=== PATIENT | male | born 1980 | race Caucasian/White ===

== ENCOUNTER 2017-10-12 09:02 | Inpatient (IN) | payer OTHER, MEDICARE ==
[~2017-10-12] VITALS: Ht 177.8 cm; Wt 70.6 kg
[2017-10-12 09:10] VITALS: BP 141/60; PULSE 61; RESP 17; TEMP 98.7; O2SAT 99
--- NOTE | 2017-10-12 09:29 | PD ---
HPI Chief Complaint: Psychiatric Symptoms Time Seen by Provider: 09:14 Travel History International Travel<30 days: No Contact w/Intl Traveler<30days: No Traveled to known affect area: No History of Present Illness HPI 29-year-old male presents to the emergency department voluntarily for psychiatric evaluation. Patient reports history of schizoaffective disorder. He states that he is on a Shah and Ambien. He states that he left [place] on Tuesday and has been walking. He states he was at [facility], which she states is a mental institution for 11 months back in 2014. Patient states that he has 2 names, one being a fictitious name that he likes to be called. He reports chronic hallucinations. He reports depression, but no plan to hurt himself. No suicidal or homicidal ideation. He reports pain to the groin from walking. He states he was previously prescribed a cream for this. Patient denies any other symptoms or complaints. Moderate severity. PFSH Past Medical History Schizophrenia: Yes (SCHIZOAFFECTIVE ) Past Surgical History Other Surgery: Yes (MELANOMA REMOVED FROM RIGHT SHOULDER) Social History Alcohol Use: Yes Tobacco Use: Yes Substance Use: Yes (MARIJUANA) Allergies-Medications (Allergen,Severity, Reaction): Coded Allergies: No Known Allergies (Verified Allergy, Unknown, 10/12/17) Review of Systems Except as stated in HPI: all other systems reviewed are Neg Physical Exam Narrative GENERAL: Well-nourished, well-developed male patient, ambulatory. Afebrile. Patient is alert oriented to person, place, time. SKIN: Focused skin assessment warm/dry. Patient has erythematous rash to the groin consistent with candidiasis. HEAD: Normocephalic. Atraumatic. EYES: No scleral icterus. No injection or drainage. NECK: Supple, trachea midline. No JVD or lymphadenopathy. CARDIOVASCULAR: Regular rate and rhythm without murmurs, gallops, or rubs. RESPIRATORY: Breath sounds equal bilaterally. No accessory muscle use. Lung sounds are clear to auscultation peer GASTROINTESTINAL: Abdomen soft, non-tender, nondistended. MUSCULOSKELETAL: No cyanosis, or edema. PSYCHIATRIC: Patient reports having a fictitious name and reports hallucinations. Data Data Last Documented VS Vital Signs Date Time Temp Pulse Resp B/P (MAP) Pulse Ox O2 Delivery O2 Flow Rate FiO2 10/12/17 09:10 98.7 61 17 141/60 (87) 99 Orders Orders Complete Blood Count With Diff (10/12/17 09:23) Comprehensive Metabolic Panel (10/12/17 09:23) Thyroid Stimulating Hormone (10/12/17 09:23) Psych Screen (10/12/17 09:23) Drug Screen, Random Urine (10/12/17 09:23) Alcohol (Ethanol) (10/12/17 09:23) Labs Laboratory Tests Test 10/12/17 09:40 White Blood Count 12.3 TH/MM3 Red Blood Count 4.54 MIL/MM3 Hemoglobin 14.0 GM/DL Hematocrit 40.4 % Mean Corpuscular Volume 89.0 FL Mean Corpuscular Hemoglobin 30.9 PG Mean Corpuscular Hemoglobin Concent 34.7 % Red Cell Distribution Width 13.2 % Platelet Count 226 TH/MM3 Mean Platelet Volume 7.8 FL Neutrophils (%) (Auto) 87.1 % Lymphocytes (%) (Auto) 7.5 % Monocytes (%) (Auto) 5.0 % Eosinophils (%) (Auto) 0.2 % Basophils (%) (Auto) 0.2 % Neutrophils # (Auto) 10.7 TH/MM3 Lymphocytes # (Auto) 0.9 TH/MM3 Monocytes # (Auto) 0.6 TH/MM3 Eosinophils # (Auto) 0.0 TH/MM3 Basophils # (Auto) 0.0 TH/MM3 CBC Comment DIFF FINAL Differential Comment Blood Urea Nitrogen 35 MG/DL Creatinine 0.90 MG/DL Random Glucose 76 MG/DL Total Protein 7.5 GM/DL Albumin 4.2 GM/DL Calcium Level 9.1 MG/DL Alkaline Phosphatase 65 U/L Aspartate Amino Transf (AST/SGOT) 69 U/L Alanine Aminotransferase (ALT/SGPT) 33 U/L Total Bilirubin 1.2 MG/DL Sodium Level 137 MEQ/L Potassium Level 3.7 MEQ/L Chloride Level 102 MEQ/L Carbon Dioxide Level 21.1 MEQ/L Anion Gap 14 MEQ/L Estimat Glomerular Filtration Rate 94 ML/MIN Thyroid Stimulating Hormone 3rd Gen 1.290 uIU/ML Urine Opiates Screen NEG Urine Barbiturates Screen NEG Urine Amphetamines Screen NEG Urine Benzodiazepines Screen NEG Urine Cocaine Screen NEG Urine Cannabinoids Screen POS Ethyl Alcohol Level LESS THAN 3 MG/DL MDM Medical Decision Making Medical Screen Exam Complete: Yes Emergency Medical Condition: Yes Medical Record Reviewed: Yes Differential Diagnosis Schizoaffective disorder versus bipolar versus depression versus anxiety versus electrode abnormality Narrative Course 37-year-old male presents to the emergency department voluntarily for psychiatric evaluation. Reports history of schizoaffective disorder. CBC, CMP , TSH, urine drug screen, alcohol level are ordered and pending. CBC shows leukocytosis 12.3. CMP shows no acute abnormality. TSH is 1.290. Alcohol level is less than 3. UDS is positive for cannabinoids. Patient is medically cleared for psychiatric screening and disposition. Mental health screening discussed with the patient. Psychiatric screen ordered. Diagnosis Primary Impression: Medical clearance for psychiatric admission Condition: Stable Michelle Lewis October 12, 2017 09:29
[2017-10-12 09:53] LABS: AUTOMATED NEUTROPHIL # 10.7 TH/MM3 (1.8-7.7); BASOPHIL % 0.2 % (0.0-2.0); EOSINOPHIL % 0.2 % (0.0-4.0); HEMATOCRIT 40.4 % (39.0-51.0); LYMPH % 7.5 % (9.0-44.0); LYMPHOCYTE # 0.9 TH/MM3 (1.0-4.8); MEAN CORPUSCULAR HEMOGLOBIN 30.9 PG (27.0-34.0); MEAN CORPUSCULAR HGB CONC 34.7 % (32.0-36.0); MEAN PLATELET VOLUME 7.8 FL (7.0-11.0); MONOCYTE # 0.6 TH/MM3 (0-0.9); NEUT % 87.1 % (16.0-70.0); PLATELET COUNT 226 TH/MM3 (150-450); RED BLOOD COUNT 4.54 MIL/MM3 (4.50-5.90); RED CELL DISTRIBUTION WIDTH 13.2 % (11.6-17.2); WHITE BLOOD COUNT 12.3 TH/MM3 (4.0-11.0)
[2017-10-12 10:20] LABS: ALBUMIN 4.2 GM/DL (3.4-5.0); AST (GOT) 69 U/L (15-37); BICARBONATE 21.1 MEQ/L (21.0-32.0); BLOOD UREA NITROGEN 35 MG/DL (7-18); CALCIUM 9.1 MG/DL (8.5-10.1); CHLORIDE 102 MEQ/L (98-107); GLOMERULAR FILTRATION RATE 94 ML/MIN (>89); GLUCOSE,RANDOM 76 MG/DL (74-106); SODIUM (NA) 137 MEQ/L (136-145)
[2017-10-12 10:21] LABS: ALT (GPT) 33 U/L (12-78)
[2017-10-12 10:30] LABS: ALKALINE PHOSPHATASE 65 U/L (45-117); TOTAL BILIRUBIN ADULT 1.2 MG/DL (0.2-1.0); TOTAL PROTEIN 7.5 GM/DL (6.4-8.2)
[2017-10-12] MEDS ORDERED: ALUMINUM/MAGNESIUM/SIMETH 30 ML CUP PO PRN (13:15)
[2017-10-12] MEDS ORDERED: MAGNESIUM HYDROXIDE SUSP 30 ML CUP PO PRN (13:15)
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
[2017-10-12 15:48] VITALS: BP 121/65; PULSE 55; RESP 18; TEMP 98.5; O2SAT 97
[2017-10-13 08:46] LABS: BICARBONATE 27.8 MEQ/L (21.0-32.0); BLOOD UREA NITROGEN 16 MG/DL (7-18); CALCIUM 8.7 MG/DL (8.5-10.1); CHLORIDE 105 MEQ/L (98-107); CHOLESTEROL 130 MG/DL (120-200); CREATININE 0.67 MG/DL (0.60-1.30); GLOMERULAR FILTRATION RATE 133 ML/MIN (>89); GLUCOSE,RANDOM 102 MG/DL (74-106); SODIUM (NA) 141 MEQ/L (136-145)
[2017-10-13] MEDS: NICOTINE 21 MG/24 HR PATCH T-DERMAL SCH (08:49)
[2017-10-13] MEDS: REMOVE OLD PATCH T-DERMAL SCH (08:51)
[2017-10-13 09:01] LABS: HDL CHOLESTEROL 44.7 MG/DL (40.0-60.0); LDL CHOLESTEROL 68 MG/DL (0-99); TRIGLYCERIDES 86 MG/DL (42-150)
[2017-10-13] MEDS: PALIPERIDONE ER 6 MG TAB PO SCH (15:45)
[2017-10-13 16:29] LABS: HEMOGLOBIN A1C 4.7 % (4.3-6.0)
--- NOTE | 2017-10-13 17:29 | PD.CONS ---
HPI Service [facility] Consult Requested By groin pain Reason for Consult Psychiatry Primary Care Physician No Primary Care Physician Diagnoses: History of Present Illness This is a 29-year-old male admitted at the psych unit for schizoaffective disorder. We were consulted for groin rash. Patient is a poor historian, not cooperative. Per patient, he walked from [place] on Tuesday and since then now has bilateral groin rash both posteriorly and anteriorly. It is painful and red. Review of Systems ROS Limitations: Uncooperative, Poor Historian Past Family Social History Allergies: Coded Allergies: No Known Allergies (Verified Allergy, Unknown, 10/12/17) Past Medical History Schizoaffective disorder Past Surgical History Melanoma removal Reported Medications None Family History Cannot be obtained, patient not cooperative. Social History Marijuana use Physical Exam Physical Exam Not in distress Ambulating Physical exam not completely done, patient not cooperative and cursing. Rash bilateral inguinal area and gluteal cleft, not leathery, erythematous, tender, swollen. Laboratory Laboratory Tests Test 10/13/17 07:34 Blood Urea Nitrogen 16 Creatinine 0.67 Random Glucose 102 Calcium Level 8.7 Sodium Level 141 Potassium Level 3.4 Chloride Level 105 Carbon Dioxide Level 27.8 Anion Gap 8 Estimat Glomerular Filtration Rate 133 Total Creatine Kinase 379 Creatine Kinase MB 2.2 Creatine Kinase MB % 0.6 Triglycerides Level 86 Cholesterol Level 130 LDL Cholesterol 68 HDL Cholesterol 44.7 Cholesterol/HDL Ratio 2.90 Result Diagram: 10/12/17 0940 10/13/17 0734 Assessment and Plan Assessment and Plan This is a 37-year-old male with friction rash admitted in the psych unit for schizoaffective disorder Schizoaffective disorder-management per psychiatry Friction rash, rule out beginning cellulitis-patient with mild leukocytosis, possibly with beginning cellulitis. Start mupirocin ointment and zinc oxide on groin rash. Start Keflex, monitor the next few days for resolution. Hypokalemia-replace DVT prophylaxis: Low risk, and bleeding. Paul Dumont MD October 13, 2017 17:29
[2017-10-13] MEDS: POTASSIUM CHLORIDE 20 MEQ PWD PACKET PO ONE ×2 (18:31→19:38)
[2017-10-13] MEDS: ACETAMINOPHEN 325 MG TAB PO PRN (19:43)
[2017-10-13] MEDS: MUPIROCIN 2% CREAM 15 GM TOPICAL SCH (20:09)
[2017-10-13] MEDS: hydrOXYzine HCL 50 MG TAB PO PRN (20:10)
[2017-10-13] MEDS: ZOLPIDEM TARTRATE 5 MG TAB PO PRN (20:10)
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
[2017-10-13] MEDS: CEPHALEXIN MONOHYDRATE 500 MG CAP PO SCH (21:06)
[2017-10-14] MEDS: CEPHALEXIN MONOHYDRATE 500 MG CAP PO SCH ×2 (06:02→14:00)
[2017-10-14 06:17] VITALS: BP 98/57; PULSE 53; RESP 16; TEMP 97.7; O2SAT 98
[2017-10-14] MEDS: REMOVE OLD PATCH T-DERMAL SCH (09:00)
[2017-10-14] MEDS: NICOTINE 21 MG/24 HR PATCH T-DERMAL SCH (09:00)
[2017-10-14] MEDS: MUPIROCIN 2% CREAM 15 GM TOPICAL SCH ×2 (09:10→20:56)
[2017-10-14] MEDS: PALIPERIDONE ER 6 MG TAB PO SCH (09:10)
[2017-10-14] MEDS: ZINC OXIDE 20% OINT 30 GM TUBE TOPICAL SCH (09:10)
--- NOTE | 2017-10-14 15:24 | HHI.PR ---
Subjective Remarks Follow-up rash. Patient states that he feels terrible. Does not feel that his legs are any better. Still painful. Objective Vitals Vital Signs Date Time Temp Pulse Resp B/P (MAP) Pulse Ox O2 Delivery O2 Flow Rate FiO2 10/14/17 06:17 97.7 53 16 98/57 (71) 98 Result Diagram: 10/12/17 0940 10/13/17 0734 Objective Remarks General: No acute distress. Skin: Abrasions with scabs and no drainage on posterior/medial thighs bilaterally, left>right. Rash in gluteal cleft with mild erythema. Psych: Alert, answers questions appropriately. Neuro: Normal speech. No focal deficits noted. Procedures None Urinary Catheter: No Vascular Central Line Catheter: No A/P Assessment and Plan 1. Schizoaffective disorder: Management per psychiatry. 2. Rash, bilateral legs: Continue conservative management. Continue mupirocin ointment and zinc oxide. Discontinue Keflex. 3. Hypokalemia: Received supplementation. 4. DVT prophylaxis: Low risk. Ambulation. Carlo Suresh MD Oct 14, 2017 15:24
--- NOTE | 2017-10-14 18:25 | HHI.PYPN ---
Subjective Remarks Patient seen for follow-up, chart reviewed. Reported the patient noted to be anxious, attending groups, compliant with medications but denying any suicidal ideations. Patient was found lying hospital bed noted B irritable, superficial cooperative, sarcastic at times, and disorganized throughout interview at times. Patient states that he sleeping "better" his mood has been okay, eating and drinking well, Perseverated on his medications continue to endorse auditory hallucinations. Patient states that he does not plan on staying in [place] stating that he will continue to walk to the next [facility] and so forth. Patient then later states that he wants to move back to the report was unable to provide any contact information for who he would be looking to stay with what in [place]. Patient continues with disorganized plans. Review of Systems Except as stated in HPI: all other systems reviewed are Neg Mental Status Examination Appearance: Disheveled Consciousness: Vigilant Orientation: x4 Motor Activity: Other (Not observed) Speech: Pressured, Rapid Language: Adequate Fund of Knowledge: Inadequate Attention and Concentration: Easily Distracted Memory: Unremarkable Mood: Irritable Affect: Irritable Thought Process & Associations: Circumstantial, Disorganized Thought Content: Bizarre thinking, Obsessions Hallucination Type: Auditory Delusion Type: Paranoid Suicidal Ideation: No Suicidal Plan: No Suicidal Intention: No Homicidal Ideation: No Homicidal Plan: No Homicidal Intention: No Insight: Poor Judgment: Poor Results Vitals/IOs Vital Signs Date Time Temp Pulse Resp B/P (MAP) Pulse Ox O2 Delivery O2 Flow Rate FiO2 10/14/17 06:17 97.7 53 16 98/57 (71) 98 Assessment & Plan Problem List: (1) Schizoaffective disorder, chronic condition with acute exacerbation ICD Codes: F25.8 - Other schizoaffective disorders Status: Acute Assessment & Plan Patient this time continues with some irritability, continues with some disorganization and continues endorse auditory hallucinations. We will increase Invega to 9 mg p.o. daily for psychosis, continue rest of medications. Continue monitor mood and behavior. Discharge planning in progress. Justification for Cont. Inpt. At risk of further decompensation at lower level of care. Discharge Planning To be determined. Jaret Summers MD Oct 14, 2017 18:25
[2017-10-14 19:00] VITALS: BP 116/56; PULSE 52; RESP 17; TEMP 97.9; O2SAT 98
[2017-10-14] MEDS: ACETAMINOPHEN 325 MG TAB PO PRN (22:06)
[2017-10-15 06:13] VITALS: BP 133/54; PULSE 51; RESP 17; TEMP 97.7; O2SAT 98
[2017-10-15] MEDS: ACETAMINOPHEN 325 MG TAB PO PRN ×3 (08:00→21:58)
[2017-10-15] MEDS: MUPIROCIN 2% CREAM 15 GM TOPICAL SCH ×2 (08:00→21:00)
[2017-10-15] MEDS: ZINC OXIDE 20% OINT 30 GM TUBE TOPICAL SCH (08:00)
[2017-10-15 08:17] LABS: AUTOMATED NEUTROPHIL # 3.4 TH/MM3 (1.8-7.7); BASOPHIL # 0.1 TH/MM3 (0-0.2); EOSINOPHIL # 0.3 TH/MM3 (0-0.4); EOSINOPHIL % 4.7 % (0.0-4.0); HEMATOCRIT 42.5 % (39.0-51.0); HEMOGLOBIN 14.5 GM/DL (13.0-17.0); LYMPH % 27.8 % (9.0-44.0); LYMPHOCYTE # 1.6 TH/MM3 (1.0-4.8); MEAN CELL VOLUME 90.6 FL (80.0-100.0); MEAN CORPUSCULAR HEMOGLOBIN 30.8 PG (27.0-34.0); MEAN PLATELET VOLUME 8.1 FL (7.0-11.0); MONOCYTE # 0.3 TH/MM3 (0-0.9); NEUT % 60.5 % (16.0-70.0); PLATELET COUNT 230 TH/MM3 (150-450); RED BLOOD COUNT 4.69 MIL/MM3 (4.50-5.90); RED CELL DISTRIBUTION WIDTH 13.1 % (11.6-17.2); WHITE BLOOD COUNT 5.6 TH/MM3 (4.0-11.0)
[2017-10-15 08:40] LABS: BICARBONATE 30.6 MEQ/L (21.0-32.0); CALCIUM 8.9 MG/DL (8.5-10.1); CREATININE 0.76 MG/DL (0.60-1.30)
[2017-10-15] MEDS: NICOTINE 21 MG/24 HR PATCH T-DERMAL SCH (09:00)
[2017-10-15] MEDS: PALIPERIDONE ER 3 MG TAB PO SCH (09:00)
[2017-10-15] MEDS: hydrOXYzine HCL 50 MG TAB PO PRN (10:43)
--- NOTE | 2017-10-15 15:50 | HHI.PYPN ---
Subjective Remarks Patient was seen and case discussed with nursing. Patient is initially logical but then continues with delusional material. Patient believes that there are people that are purposely trying to set him up with "improper women." He then goes on about his neighbors who do not know how to make money. Insight is quite poor into his behavior. Denies recent drug use. Denies auditory or visual hallucinations. Internally preoccupied throughout the day Mental Status Examination Appearance: Disheveled Consciousness: Vigilant Orientation: x4 Motor Activity: Other (Not observed) Speech: Pressured, Rapid Language: Adequate Fund of Knowledge: Inadequate Attention and Concentration: Easily Distracted Memory: Unremarkable Mood: Irritable Affect: Irritable Thought Process & Associations: Circumstantial, Disorganized Thought Content: Bizarre thinking, Obsessions Hallucination Type: Auditory (Denies today) Delusion Type: Paranoid Suicidal Ideation: No Suicidal Plan: No Suicidal Intention: No Homicidal Ideation: No Homicidal Plan: No Homicidal Intention: No Insight: Poor Judgment: Poor Results Labs Test 10/15/17 07:44 White Blood Count 5.6 TH/MM3 Red Blood Count 4.69 MIL/MM3 Hemoglobin 14.5 GM/DL Hematocrit 42.5 % Mean Corpuscular Volume 90.6 FL Mean Corpuscular Hemoglobin 30.8 PG Mean Corpuscular Hemoglobin Concent 34.0 % Red Cell Distribution Width 13.1 % Platelet Count 230 TH/MM3 Mean Platelet Volume 8.1 FL Neutrophils (%) (Auto) 60.5 % Lymphocytes (%) (Auto) 27.8 % Monocytes (%) (Auto) 6.0 % Eosinophils (%) (Auto) 4.7 % Basophils (%) (Auto) 1.0 % Neutrophils # (Auto) 3.4 TH/MM3 Lymphocytes # (Auto) 1.6 TH/MM3 Monocytes # (Auto) 0.3 TH/MM3 Eosinophils # (Auto) 0.3 TH/MM3 Basophils # (Auto) 0.1 TH/MM3 CBC Comment DIFF FINAL Differential Comment Blood Urea Nitrogen 15 MG/DL Creatinine 0.76 MG/DL Random Glucose 85 MG/DL Calcium Level 8.9 MG/DL Sodium Level 143 MEQ/L Potassium Level 4.0 MEQ/L Chloride Level 104 MEQ/L Carbon Dioxide Level 30.6 MEQ/L Anion Gap 8 MEQ/L Estimat Glomerular Filtration Rate 115 ML/MIN Vitals/IOs Vital Signs Date Time Temp Pulse Resp B/P (MAP) Pulse Ox O2 Delivery O2 Flow Rate FiO2 10/15/17 06:13 97.7 51 17 133/54 (80) 98 Assessment & Plan Problem List: (1) Schizoaffective disorder, chronic condition with acute exacerbation ICD Codes: F25.8 - Other schizoaffective disorders Status: Acute Assessment & Plan Patient would decompensate in a less restrictive setting Justification for Cont. Inpt. Continue current treatment plan Gage Hi DO Oct 15, 2017 15:50
[2017-10-15 17:55] VITALS: BP 111/68; PULSE 79; RESP 19; TEMP 97.9; O2SAT 98
[2017-10-15] MEDS: REMOVE OLD PATCH T-DERMAL SCH (19:00)
[2017-10-15] MEDS: ZOLPIDEM TARTRATE 5 MG TAB PO PRN (21:58)
[2017-10-16 06:17] VITALS: BP 129/56; PULSE 47; RESP 16; TEMP 98; O2SAT 98
[2017-10-16] MEDS: hydrOXYzine HCL 50 MG TAB PO PRN ×2 (08:15→17:28)
[2017-10-16] MEDS: ACETAMINOPHEN 325 MG TAB PO PRN ×2 (08:15→14:14)
[2017-10-16] MEDS: NICOTINE 21 MG/24 HR PATCH T-DERMAL SCH (08:16)
[2017-10-16] MEDS: REMOVE OLD PATCH T-DERMAL SCH (09:00)
[2017-10-16] MEDS: MUPIROCIN 2% CREAM 15 GM TOPICAL SCH ×2 (09:00→21:00)
[2017-10-16] MEDS: ZINC OXIDE 20% OINT 30 GM TUBE TOPICAL SCH (09:00)
[2017-10-16] MEDS: PALIPERIDONE ER 3 MG TAB PO SCH (09:28)
--- NOTE | 2017-10-16 10:27 | HHI.PYPN ---
Subjective Remarks Patient was seen and case discussed with nursing. Patient is initially pleasant without psychotic features but then when I asked him about his thoughts of an [place] when he came in. Patient says "what is wrong with having in [place], why cannot I have my own?" Complaining of insomnia. Behaving well on the unit Mental Status Examination Appearance: Disheveled Consciousness: Vigilant Orientation: x4 Motor Activity: Other (Not observed) Speech: Pressured, Rapid Language: Adequate Fund of Knowledge: Inadequate Attention and Concentration: Easily Distracted Memory: Unremarkable Mood: Irritable Affect: Irritable Thought Process & Associations: Circumstantial, Disorganized Thought Content: Bizarre thinking, Obsessions Hallucination Type: None Delusion Type: Bizarre Suicidal Ideation: No Suicidal Plan: No Suicidal Intention: No Homicidal Ideation: No Homicidal Plan: No Homicidal Intention: No Insight: Poor Judgment: Poor Results Vitals/IOs Vital Signs Date Time Temp Pulse Resp B/P (MAP) Pulse Ox O2 Delivery O2 Flow Rate FiO2 10/16/17 06:17 98.0 47 16 129/56 (80) 98 Assessment & Plan Problem List: (1) Schizoaffective disorder, chronic condition with acute exacerbation ICD Codes: F25.8 - Other schizoaffective disorders Status: Acute Assessment & Plan Continue current treatment plan Justification for Cont. Inpt. Patient would decompensate in a less restrictive setting Gage Hi DO Oct 16, 2017 10:27
--- NOTE | 2017-10-16 15:20 | HHI.PR ---
Subjective Remarks Follow up rash. Patient reporting pain in his legs. States they are "tight". Rash is improving. Objective Vitals Vital Signs Date Time Temp Pulse Resp B/P (MAP) Pulse Ox O2 Delivery O2 Flow Rate FiO2 10/16/17 06:17 98.0 47 16 129/56 (80) 98 10/15/17 17:55 97.9 79 19 111/68 (82) 98 Result Diagram: 10/15/17 0744 10/15/17 0744 Objective Remarks General: No acute distress. Skin: Rash on groin and medial thighs is improving. Mild erythema. No open wounds. Heart: RRR Lungs: CTA Psych: Alert, answers questions appropriately. Neuro: Normal speech. No focal deficits noted. Procedures None Urinary Catheter: No Vascular Central Line Catheter: No A/P Assessment and Plan 1. Schizoaffective disorder: Management per psychiatry. 2. Rash, bilateral legs: Continue conservative management. Continue mupirocin ointment and zinc oxide. No need for oral antibiotics at this time. 3. Hypokalemia: Resolved. Received supplementation. 4. DVT prophylaxis: Low risk. Ambulation. [facility] will sign off. Please reconsult if necessary. Carlo Suresh MD Oct 16, 2017 15:20
[2017-10-16 16:00] VITALS: BP 125/60; PULSE 72; RESP 16; TEMP 97.9; O2SAT 98
[2017-10-16] MEDS: traZODone HCL 100 MG TAB PO SCH (21:00)
[2017-10-17 06:27] VITALS: BP 117/55; PULSE 50; PULSE 56; RESP 16; TEMP 98.7; O2SAT 98
[2017-10-17] MEDS: NICOTINE 21 MG/24 HR PATCH T-DERMAL SCH (08:27)
[2017-10-17] MEDS: MUPIROCIN 2% CREAM 15 GM TOPICAL SCH ×2 (08:28→21:00)
[2017-10-17] MEDS: REMOVE OLD PATCH T-DERMAL SCH (08:28)
[2017-10-17] MEDS: ZINC OXIDE 20% OINT 30 GM TUBE TOPICAL SCH (08:28)
[2017-10-17] MEDS ORDERED: PALIPERIDONE ER 3 MG TAB PO SCH (09:00)
[2017-10-17] MEDS: ACETAMINOPHEN 325 MG TAB PO PRN ×3 (10:42→21:11)
[2017-10-17 17:06] VITALS: BP 107/49; PULSE 70; RESP 18; TEMP 97.8; O2SAT 99
--- NOTE | 2017-10-17 18:52 | HHI.PYPN ---
Subjective Remarks Patient seen for follow, chart reviewed. Discussion nursing staff reported the patient continues to have paranoid ideations, with continued disorganized statements at times, isolative continues report having leg pain and only took medications partially, specifically the psychotic. Patient was found sitting hospital chair superficially cooperative today patient states that he plans on returning back to [place] where he is from and that his cousin can be involved in his outpatient discharge planning. He states that he last spoke to his cousin last Tuesday. Patient upset that his paliperidone dose was increased stating "I do not mind the voices", continues to have some disorganization in thought process during interview but noted to be improving. Patient states he has own apartment [place] which she plans on returning to along with outpatient follow-up with a psychiatrist there. Patient continues to refuse having his mother involved in his care at this time. Collateral information will be obtained from patient's cousin involved in discharge planning. Patient this time continues to endorse auditory hallucinations, denies any SI, HI, or any visual hallucinations. Review of Systems Except as stated in HPI: all other systems reviewed are Neg Mental Status Examination Appearance: Disheveled Consciousness: Vigilant Orientation: x4 Motor Activity: Other (Not observed) Speech: Pressured, Rapid Language: Adequate Fund of Knowledge: Inadequate Attention and Concentration: Easily Distracted Memory: Unremarkable Mood: Irritable (Lessening) Affect: Irritable Thought Process & Associations: Circumstantial, Disorganized (Lessening) Thought Content: Bizarre thinking Hallucination Type: None Delusion Type: Bizarre Suicidal Ideation: No Suicidal Plan: No Suicidal Intention: No Homicidal Ideation: No Homicidal Plan: No Homicidal Intention: No Insight: Poor Judgment: Poor Results Vitals/IOs Vital Signs Date Time Temp Pulse Resp B/P (MAP) Pulse Ox O2 Delivery O2 Flow Rate FiO2 10/17/17 17:06 97.8 70 18 107/49 (68) 99 Assessment & Plan Problem List: (1) Schizoaffective disorder, chronic condition with acute exacerbation ICD Codes: F25.8 - Other schizoaffective disorders Status: Acute Assessment & Plan Patient this time continues with some disorganization but improving, continues to endorse auditory hallucinations and currently with partial compliance with his antipsychotic medications. Patient was continued to be encouraged to adhere to recommendations and treatment. Patient appears to start to have more concrete plan in terms of his discharge, we will continue collateral information from patient's cousin to involve her/him in discharge planning. We will continue to monitor mood and behavior. Discharge planning in progress. Justification for Cont. Inpt. At risk of further decompensation a lower level of care. Discharge Planning Patient return back to [facility] when psychiatrically stable which may be within 1-2 days. Jaret Summers MD Oct 17, 2017 18:52
[2017-10-17] MEDS: traZODone HCL 100 MG TAB PO SCH (21:10)
[2017-10-17] MEDS: hydrOXYzine HCL 50 MG TAB PO PRN (21:12)
[2017-10-18 06:10] VITALS: BP 107/53; PULSE 56; RESP 18; TEMP 97.8; O2SAT 98
[2017-10-18 06:50] VITALS: BP 95/49; PULSE 37; RESP 16; O2SAT 98
[2017-10-18 07:05] VITALS: BP 111/47; PULSE 52; O2SAT 98
[2017-10-18] MEDS: ACETAMINOPHEN 325 MG TAB PO PRN (08:02)
[2017-10-18 08:03] LABS: BASOPHIL # 0.1 TH/MM3 (0-0.2); BASOPHIL % 0.8 % (0.0-2.0); EOSINOPHIL # 0.3 TH/MM3 (0-0.4); EOSINOPHIL % 3.4 % (0.0-4.0); HEMATOCRIT 42.9 % (39.0-51.0); HEMOGLOBIN 14.6 GM/DL (13.0-17.0); LYMPH % 23.2 % (9.0-44.0); LYMPHOCYTE # 1.7 TH/MM3 (1.0-4.8); MEAN CELL VOLUME 90.2 FL (80.0-100.0); MEAN CORPUSCULAR HEMOGLOBIN 30.6 PG (27.0-34.0); MEAN PLATELET VOLUME 7.2 FL (7.0-11.0); MONO % 5.1 % (0.0-8.0); MONOCYTE # 0.4 TH/MM3 (0-0.9); NEUT % 67.5 % (16.0-70.0); PLATELET COUNT 274 TH/MM3 (150-450); RED BLOOD COUNT 4.75 MIL/MM3 (4.50-5.90); RED CELL DISTRIBUTION WIDTH 12.9 % (11.6-17.2); WHITE BLOOD COUNT 7.4 TH/MM3 (4.0-11.0)
[2017-10-18 08:29] LABS: ALBUMIN 3.4 GM/DL (3.4-5.0); AST (GOT) 15 U/L (15-37); BICARBONATE 28.1 MEQ/L (21.0-32.0); BLOOD UREA NITROGEN 19 MG/DL (7-18); CHLORIDE 102 MEQ/L (98-107); GLOMERULAR FILTRATION RATE 94 ML/MIN (>89); GLUCOSE,RANDOM 107 MG/DL (74-106); SODIUM (NA) 140 MEQ/L (136-145)
[2017-10-18 08:30] LABS: ALT (GPT) 29 U/L (12-78)
[2017-10-18 08:34] LABS: ALKALINE PHOSPHATASE 67 U/L (45-117); TOTAL BILIRUBIN ADULT 0.2 MG/DL (0.2-1.0); TROPONIN I LESS THAN 0.02 NG/ML (0.02-0.05)
[2017-10-18 09:00] VITALS: BP 127/58; PULSE 66; O2SAT 18
[2017-10-18] MEDS: REMOVE OLD PATCH T-DERMAL SCH (09:00)
[2017-10-18] MEDS ORDERED: PALIPERIDONE ER 9 MG TAB PO SCH (09:00)
[2017-10-18] MEDS ORDERED: PALIPERIDONE ER 3 MG TAB PO SCH (09:00)
[2017-10-18] MEDS: MUPIROCIN 2% CREAM 15 GM TOPICAL SCH (09:00)
[2017-10-18] MEDS: ZINC OXIDE 20% OINT 30 GM TUBE TOPICAL SCH (09:00)
--- NOTE | 2017-10-18 09:12 | HHI.PR ---
Addendum to Inpatient Note Additional Information The patient had a syncopal episode this morning in psychiatry. He was noted to be bradycardic. He is now asymptomatic. He has been transferred to medical/ psych unit. I spoke with Dr. Summers, psychiatry attending, and we will transfer the patient to the medical floor for workup of syncope, symptomatic bradycardia. H&P to follow once medical visit established in EMR. Carlo Suresh MD Oct 18, 2017 09:12
[2017-10-18] MEDS: NICOTINE 21 MG/24 HR PATCH T-DERMAL SCH (09:54)
[2017-10-18 10:05] VITALS: BP 136/61; PULSE 62; RESP 18; O2SAT 96
--- NOTE | 2017-10-18 10:24 | HHI.DS ---
Psychiatry Discharge Summary Inpatient Psychiatric care?: Yes Advance Directive: No Reason Not Provided: Due to Patient Condition Mental Health AdvanceDirective: No Health Care Proxy: No Admission Admission Date October 12, 2017 at 13:12 Admission Diagnosis: (1) Schizoaffective disorder, chronic condition with acute exacerbation ICD Code: F25.8 - Other schizoaffective disorders Brief History Patient is a 37 y/o man, domiciled alone, with a past psychiatric history of schizoaffective disorder, polysubstance use disorder, prior psychiatric admissions, no prior suicide attempts, no prior self injurious behavior, who presented to the ED voluntarily and noted to be acting bizarre, endorsing suicidal ideation and chronic auditory hallucinations which patient was admitted to the inpatient psychiatry unit for further evaluation and management. Patient was found lying on hospital bed, noted to be irritable and superficially cooperative with sarcastic tone throughout interview. Patient states that he has had 7 [place] [address] and had walked from [place] to [facility] after discord with roommate. Patient was noted to be making disorganized statements at times. He states that his mother has been "always in my life...my mom's a bitch....always in my life". He states that he has been having decreased sleep, appetite, energy and concentration and mood being "angry" and reports having AH of "everybody" and that the voices commanded him to leave the home. Currently he denies any SI or HI. He reports having skin irritation in his groin after having walked long distance Past psychiatric history: previous psychiatric diagnosis of schizoaffective disorder, multiple psychiatric admissions, no prior suicide attempts or self injurious behavior. He reports a psychiatrist in [place] (not specified). Substance use history: Tobacco (+), ETOH "in moderation" (refused to specify), THC "whenever I can get it". Reports history of polysubstance use "I've tried everything" Past medical history: denies Allergies: NKDA as per chart but reports seroquel Social history: reports living with roommate. The rest of history is limited due to patient's intolerance to extended interview. Tobacco Use In Past 30 Days: Refused To Answer Alcohol Use: Never Hospital Course Patient is a 37 y/o man, domiciled alone, with a past psychiatric history of schizoaffective disorder, polysubstance use disorder, prior psychiatric admissions, no prior suicide attempts, no prior self injurious behavior, who presented to the ED voluntarily and noted to be acting bizarre, endorsing suicidal ideation and chronic auditory hallucinations which patient was admitted to the inpatient psychiatry unit for further evaluation and management. Patient was resumed on paliperidone and titrated to 9mg daily, but had been taking partial dose of 6mg daily as he refuses to take more than that amount of dose. Patient was followed by medical team for friction rash in bilateral inguinal area and gluteal cleft which he was given Keflex along with mupirocin ointment and zinc oxide on groin rash. Patient tolerated medications well with no reported adverse drug reactions. Patient noted to start having improvement in mood, less irritability, and lessening of disorganization, but with no behavioral disturbances since admission and continued to deny suicidal ideation. Patient had been reporting auditory hallucinations since admission and continued to do so but denying any command auditory hallucinations. He believes the AH are part of his ability to be a psychic. He has for the most part been cooperative with staff, no behavioral disturbances and tolerating treatment well. Patient also noted with some improvement of personal hygiene and caring for self and participated in groups and activities. Patient this morning had a syncopal episode which patient was transferred to the medical/ psychiatry unit and evaluated by medical team which recommended transfer to medical floor for further workup of syncope and symptomatic bradycardia. Patient discharged to medical floor. Results Blood Pressure 136 / 61 Vital Signs Date Time Temp Pulse Resp B/P (MAP) Pulse Ox O2 Delivery O2 Flow Rate FiO2 10/18/17 10:05 62 18 136/61 (86) 96 10/18/17 06:10 97.8 Laboratory Tests Test 10/18/17 07:50 Blood Urea Nitrogen 19 MG/DL (7-18) Random Glucose 107 MG/DL (74-106) Total Creatine Kinase 33 U/L (39-308) Troponin I LESS THAN 0.02 NG/ML Laboratory Results Test 10/13/17 07:34 Cholesterol Level 130 MG/DL (120-200) HDL Cholesterol 44.7 MG/DL (40.0-60.0) Hemoglobin A1c 4.7 % (4.3-6.0) LDL Cholesterol 68 MG/DL (0-99) Triglycerides Level 86 MG/DL (42-150) Summary of Procedures None Pending results at discharge: No Medications # of Antipsychotic meds at D/C: 1 Approp Antipsych med options 1 - Minimum of three failed multiple trials of monotherapy. 2 - Documented plan to taper to monotherapy due to previous use of multiple meds OR cross-taper in progress at D/C. 3 - Documentation of augmentation of Clozapine. 4 - Justification other than those listed in allowable values 1-3, document here : Discharge Discharge Date: Oct 18, 2017 Discharge Diagnosis: (1) Schizoaffective disorder, chronic condition with acute exacerbation ICD Code: F25.8 - Other schizoaffective disorders Status: Acute Pt Condition on Discharge: Stable Discharge Disposition: Trnsfr to Other Facility Discharge Instructions Diet Instructions: As Tolerated, No Restrictions Activities you can perform: Regular-No Restrictions Discharge Time > 30 minutes Mental Status Examination Appearance: Appropriate Consciousness: Vigilant Orientation: x4 Motor Activity: Other (Not observed) Speech: Pressured, Rapid Language: Adequate Fund of Knowledge: Inadequate Attention and Concentration: Easily Distracted Memory: Unremarkable Mood: Irritable (Lessening) Affect: Irritable Thought Process & Associations: Disorganized (Lessening) Thought Content: Bizarre thinking (believes he is psychic) Hallucination Type: Auditory Delusion Type: Bizarre Suicidal Ideation: No Suicidal Plan: No Suicidal Intention: No Homicidal Ideation: No Homicidal Plan: No Homicidal Intention: No Insight: Poor Judgment: Impulsive Discharge/Advance Care Plan Health Problems: (1) Schizoaffective disorder, chronic condition with acute exacerbation Goals to promote your health * To prevent worsening of your condition and complications * To maintain your health at the optimal level Directions to meet your goals Take your medications as prescribed Follow your dietary instruction Follow activity as directed Keep your appointments as scheduled Take your immunizations and boosters as scheduled If your symptoms worsen call your PCP, if no PCP go to Urgent Care Center or Emergency Room For 06/12 questions related to your inpatient stay or results of tests pending at discharge, please contact Dr. Jaret Summers at Smoking is Dangerous to Your Health. Avoid second hand smoking Jaret Summers MD Oct 18, 2017 10:24
--- NOTE | 2017-10-18 16:38 | EKG ---
Date Performed: 10/18/2017 Time Performed: 08:10:18 PTAGE: 37 years EKG: SINUS BRADYCARDIA EARLY REPOLARIZATION BORDERLINE ECG NO PREVIOUS TRACING Inferior T-wave changes. Clinical correlation will be important to ex clude pericarditis and possibly myocardial ischemia, but the tracing is most consistent with early re polarization. DOCTOR: Angela Devi Interpretating Date/Time 10/18/2017 16:37:40
== END 2017-10-18 13:43 | disposition short-term general hospital (02) | DRG 885 ==
LOC: NEPD 09:02 → H4EA 13:12 → UNDOADMIN 13:12 → NEDA 13:12 → H260 14:40 → NEDA 14:40 → H260 15:35 → H270 15:35 → H4EA 10-18 07:30 → N04A 10-18 12:53 → H4EA 10-18 12:53 → UNDODISIN 10-18 13:43
PROVIDERS: ADMIT Student in an Organized Health Care Education/Training Program; ATTEND Student in an Organized Health Care Education/Training Program
DX: F25.9 Schizoaffective disorder, unspecified (principal); R00.1 Bradycardia, unspecified; L03.314 Cellulitis of groin; D72.829 Elevated white blood cell count, unspecified; E87.6 Hypokalemia; R21 Rash and other nonspecific skin eruption; R55 Syncope and collapse; F12.90 Cannabis use, unspecified, uncomplicated; F17.200 Nicotine dependence, unspecified, uncomplicated; Z91.14 Patient's other noncompliance with medication regimen; Z85.820 Personal history of malignant melanoma of skin
CPT/HCPCS: 80048; 80053; 80061; 80307; 82550; 82552; 83036; 84443; 84484; 85025; 93005; 99285

== ENCOUNTER 2017-10-18 09:57 | Inpatient (IN) | payer MEDICARE, OTHER ==
[~2017-10-18] VITALS: Ht 180.3 cm; Wt 72.2 kg
[2017-10-18 12:14] VITALS: BP 124/61; PULSE 69; RESP 20; TEMP 98.1; O2SAT 96
--- NOTE | 2017-10-18 15:28 | HHI.HP ---
[facility] Service [facility] Primary Care Physician Unknown Admission Diagnosis Syncope Diagnoses: (1) Syncope (2) Symptomatic bradycardia (3) Schizoaffective disorder Chief Complaint: Syncope Travel History International Travel<30 Days: No Contact w/Intl Traveler <30 Da: No History of Present Illness Late entry. Patient was seen at 0800 this morning. The patient is a 37-year-old male who was admitted to inpatient psychiatry for schizoaffective disorder. This morning he apparently felt lightheaded and had a syncopal episode. When nursing staff found him on the floor, he had a heart rate of 37. He denies any chest pain or dyspnea. Denies headache or vision changes. States that he did not hit his head or injure anything else when he fell. He still has pain in his legs related to walking from [place] to [facility]. He also reports pain in the bottom of his feet, also from wounds that developed due to walking very long distance. He does not feel lightheaded at the time of my examination. Review of Systems Constitutional: DENIES: Fever, Chills, Night Sweats Eyes: DENIES: Blurred vision, Vision loss Ears, nose, mouth, throat: DENIES: Hearing loss Respiratory: DENIES: Cough, Wheezing, Sputum production, Shortness of breath Cardiovascular: COMPLAINS OF: Syncope, DENIES: Chest pain, Palpitations, Dyspnea on Exertion, Lower Extremity Edema Gastrointestinal: DENIES: Abdominal pain, Constipation, Diarrhea, Nausea, Vomiting Genitourinary: DENIES: Urinary frequency, Urinary incontinence, Urgency, Hematuria, Dysuria, Nocturia Musculoskeletal: DENIES: Joint pain, Muscle aches Integumentary: DENIES: Pruritus, Rash Hematologic/lymphatic: DENIES: Bruising Neurologic: DENIES: Headache Past Family Social History Past Medical History Schizoaffective disorder Past Surgical History Removal of melanoma Reported Medications See list Allergies: Coded Allergies: No Known Allergies (Verified Allergy, Unknown, 10/12/17) Family History Patient denies significant family medical history. Social History Admits to marijuana use. Smokes cigarettes. Occasional alcohol use. Physical Exam Vital Signs Vital Signs Date Time Temp Pulse Resp B/P (MAP) Pulse Ox O2 Delivery O2 Flow Rate FiO2 10/18/17 12:14 98.1 69 20 124/61 (82) 96 Physical Exam GENERAL: Well-nourished, well-developed male in no acute distress. HEENT: Normocephalic, atraumatic. Pupils equal, round and reactive. Extraocular movements intact. No scleral icterus. No injection or drainage. Oropharynx is clear. Mucous membranes are moist. CARDIOVASCULAR: Regular rate and rhythm without murmurs, gallops, or rubs. RESPIRATORY: Clear to auscultation. No wheezes, rales, or rhonchi. Breathing is non-labored. GASTROINTESTINAL: Abdomen soft, non-tender, nondistended. EXTREMITIES: No lower extremity edema. No calf tenderness. PSYCH: Alert and oriented x 3. SKIN: Healing abrasions on both upper thighs. Blisters on plantar surface of both feet. Caprini VTE Risk Assessment Caprini VTE Risk Assessment: No/Low Risk (score <= 1) Caprini Risk Assessment Model Point Value = 1 Point Value = 2 Point Value = 3 Point Value = 5 Age 41-60 Minor surgery BMI > 25 kg/m2 Swollen legs Varicose veins or History of unexplained or recurrent spontaneous Oral contraceptives or hormone replacement Sepsis (< 1 month) Serious lung disease, including pneumonia (< 1 month) Abnormal pulmonary function Acute myocardial infarction Congestive heart failure (< 1 month) History of inflammatory bowel disease Medical patient at bed rest Age 61-74 Arthroscopic surgery Major open surgery (> 45 min) Laparoscopic surgery (> 45 min) Malignancy Confined to bed (> 72 hours) Immobilizing plaster cast Central venous access Age >= 75 History of VTE Family history of VTE Factor V Leiden Prothrombin [id number] Lupus anticoagulant Anticardiolipin antibodies Elevated serum homocysteine Heparin-induced thrombocytopenia Other congenital or acquired thrombophilia Stroke (< 1 month) Elective arthroplasty Hip, pelvis, or leg fracture Acute spinal cord injury (< 1 month) Prophylaxis Regimen Total Risk Factor Score Risk Level Prophylaxis Regimen 0-1 Low Early ambulation 2 Moderate Order ONE of the following: *Sequential Compression Device (SCD) *Heparin 5000 units SQ BID 3-4 Higher Order ONE of the following medications: *Heparin 5000 units SQ TID *Enoxaparin/Lovenox 40 mg SQ daily (WT < 150 kg, CrCl > 30 mL/min) *Enoxaparin/Lovenox 30 mg SQ daily (WT < 150 kg, CrCl > 10-29 mL/min) *Enoxaparin/Lovenox 30 mg SQ BID (WT < 150 kg, CrCl > 30 mL/min) AND/OR *Sequential Compression Device (SCD) 5 or more Highest Order ONE of the following medications: *Heparin 5000 units SQ TID (Preferred with Epidurals) *Enoxaparin/Lovenox 40 mg SQ daily (WT < 150 kg, CrCl > 30 mL/min) *Enoxaparin/Lovenox 30 mg SQ daily (WT < 150 kg, CrCl > 10-29 mL/min) *Enoxaparin/Lovenox 30 mg SQ BID (WT < 150 kg, CrCl > 30 mL/min) AND *Sequential Compression Device (SCD) Assessment and Plan Assessment and Plan 1. Syncopal episode, symptomatic bradycardia: Placed on telemetry. Check 2D echocardiogram. Check serial cardiac enzymes. Initial troponin is negative. No chest pain. Consult cardiology. 2. Rash, bilateral upper legs: Continue conservative management. No apparent infection at this time. 3. Blisters, bilateral feet: Monitor. Consider podiatry if no improvement. 4. Schizoaffective disorder: Consult psychiatry. 5. DVT prophylaxis: HELIO Figueroa. Carlo Suresh MD Oct 18, 2017 15:28
[2017-10-18] MEDS ORDERED: NALOXONE HCL 0.4 MG/ML AMP IV PUSH PRN (15:30)
[2017-10-18] MEDS ORDERED: SENNOSIDES 8.6 MG TAB PO PRN (15:30)
[2017-10-18] MEDS ORDERED: SODIUM CHLORIDE 0.9% FLUSH 10 ML FLUSH IV FLUSH PRN (15:30)
[2017-10-18] MEDS ORDERED: MAGNESIUM HYDROXIDE SUSP 30 ML CUP PO PRN (15:30)
[2017-10-18] MEDS ORDERED: ONDANSETRON HCL 4 MG/2 ML VIAL IVP PRN (15:30)
[2017-10-18] MEDS ORDERED: BISACODYL 10 MG SUPP RECTAL PRN (15:30)
[2017-10-18] MEDS ORDERED: LACTULOSE SYRUP 20 GM/30 ML CUP PO PRN (15:30)
[2017-10-18] MEDS ORDERED: ACETAMINOPHEN 325 MG TAB PO PRN (16:00)
--- NOTE | 2017-10-18 17:22 | EKG ---
Date Performed: 10/18/2017 Time Performed: 16:46:05 PTAGE: 37 years EKG: SINUS BRADYCARDIA BORDERLINE ECG PREVIOUS TRACING : 10/18/2017 08.10 Since the previous tracing, no significant change noted DOCTOR: Yaw Ybarra Interpretating Date/Time 10/18/2017 17:20:36
[2017-10-18 17:57] VITALS: PULSE 94
[2017-10-18 18:00] VITALS: BP 134/59; PULSE 61; RESP 20; TEMP 97.5; O2SAT 96
--- NOTE | 2017-10-18 18:17 | MB ---
cc: Demetri Cowan DO DATE: 10/18/2017 REASON FOR CONSULTATION: Syncopal episode. HISTORY OF PRESENT ILLNESS: Cheikh Cortes is a pleasant 37-year-old male who originally presented to [facility] Emergency Room for voluntary psychiatric evaluation. Apparently, he lives in [place] and did not like the people around him or his apartment, and so he just started walking. He tells me that his goal was to walk to [place] and at the pace he was going it would take about 30 days. He was drinking water during his walk and he would use restaurant hoses to get water. He also states that he has 2 names, 1 being factitious and another that he likes to be called, but cannot tell me these names. Apparently, he has been in multiple institutions and states that he has been [facility] a number of times in the [facility]. He was admitted to the psych unit and while there this morning had supposedly a syncopal episode. He states that he got up, went to use the restroom, came back and was sitting down and asked the staff for orange juice. While they were getting orange juice, he felt like he slumped down in his chair onto the floor. He is unable to tell me, but it does not appear that he had loss of consciousness. When nursing staff found him on the floor, he had a heart rate of 37. He denied chest pain, shortness of breath or palpitations. Because of this, he was transferred to the medical/surgical floor and I was asked to see him in consultation. In seeing him, he is currently hemodynamically stable without chest pain or shortness of breath. PAST MEDICAL HISTORY: Schizoaffective disorder. PAST SURGICAL HISTORY: Removal of melanoma. ALLERGIES: NO KNOWN DRUG ALLERGIES. MEDICATIONS: Believed to be on Invega as well as Ambien. FAMILY HISTORY: Denies premature coronary artery disease or sudden cardiac within the family. SOCIAL HISTORY: Admits to marijuana and tobacco abuse. He occasionally uses alcohol. Denies drug abuse. REVIEW OF SYSTEMS: Fourteen systems were reviewed including osteopathic. Pertinent positives and negatives above, otherwise negative. PHYSICAL EXAMINATION: VITAL SIGNS: Temperature 98.1, heart rate 69, blood pressure 124/61, respirations 20, pulse oximetry 96% on room air. GENERAL: The patient appears well in no acute distress, alert, awake and oriented x 3. HEENT: Extraocular muscles intact. Mucous membranes moist. NECK: Supple. No JVD at 45 degrees. No carotid bruits heard bilaterally. Carotid upstroke is brisk in nature. HEART: Regular rate and rhythm. Positive first and second heart sounds with no noted murmurs, gallops or rubs. LUNGS: Clear to auscultation bilaterally. No wheezes, rales or rhonchi. ABDOMEN: Soft, nontender, and nondistended. No organomegaly noted. EXTREMITIES: Show no clubbing, cyanosis or edema. Femoral and distal pulses intact bilaterally. NEUROLOGIC: No focal deficits. SKIN: Warm, dry and intact. OSTEOPATHIC: No kyphoscoliosis, lordosis or paraspinal tender points. LABORATORY DATA: Hemoglobin 14.6, hematocrit 42.9, platelets 274. Potassium 4.1, BUN 19, creatinine 0.9. TSH 1.29. Electrocardiogram (10/18/2017 at 1646): Sinus bradycardia, ST-T wave changes consistent with early repolarization. ASSESSMENT: 1. Possible syncopal episode, although cannot rule out generalized weakness. 2. Schizoaffective disorder. RECOMMENDATIONS: 1. Mr. Cortes supposedly had a syncopal episode, although it is difficult as the patient is unable to tell me much from this. He denies chest pain, shortness of breath or palpitations. 2. While on the floor, he was found to have a heart rate of 37, as he is a young male I feel that his heart rate should be relatively low, especially at rest. 3. We will check 2D echo to look at his overall left ventricular function, cardiac structure and possible valvulopathies. 4. We will have him followed on telemetry to evaluate his rhythm. 5. We will follow him on telemetry while here in the hospital. 6. He is on Invega, which can cause syncope and bradycardic episodes. Overall, any of the antipsychotics can cause this, which makes it more difficult to determine a possible cause if not pharmacologic. 7. Further recommendations will be made based on the hospital course. Thank you for allowing me to see Cheikh Cortes. If there are any questions, please do not hesitate to call. DO KHARI PedersenP/MACARENA , 05:39 PM , 06:16 PM
[2017-10-18 19:56] LABS: TROPONIN I LESS THAN 0.02 NG/ML (0.02-0.05)
[2017-10-18 20:00] VITALS: BP 122/59; PULSE 56; RESP 17; TEMP 97.9; O2SAT 97
[2017-10-18 20:04] VITALS: PULSE 71
[2017-10-18] MEDS: DOCUSATE SODIUM 50 MG/SENNA 8.6 MG TAB PO SCH (21:00)
[2017-10-18] MEDS: traZODone HCL 100 MG TAB PO SCH (21:58)
[2017-10-18] MEDS: SODIUM CHLORIDE 0.9% FLUSH 10 ML FLUSH IV FLUSH SCH (22:04)
[2017-10-18 23:54] VITALS: PULSE 47
[2017-10-19] VITALS (9 sets, daily range): BP systolic 104–130; BP diastolic 56–71; PULSE 39–66; RESP 17–20; TEMP 97.4–98.1; O2SAT 96–98
[2017-10-19 00:53] LABS: TROPONIN I LESS THAN 0.02 NG/ML (0.02-0.05)
[2017-10-19] MEDS: hydrOXYzine HCL 25 MG TAB PO PRN (04:53)
[2017-10-19 06:24] LABS: AUTOMATED NEUTROPHIL # 3.3 TH/MM3 (1.8-7.7); BASOPHIL # 0.1 TH/MM3 (0-0.2); BASOPHIL % 0.9 % (0.0-2.0); EOSINOPHIL # 0.3 TH/MM3 (0-0.4); EOSINOPHIL % 4.5 % (0.0-4.0); HEMATOCRIT 40.6 % (39.0-51.0); HEMOGLOBIN 13.7 GM/DL (13.0-17.0); LYMPH % 35.8 % (9.0-44.0); LYMPHOCYTE # 2.3 TH/MM3 (1.0-4.8); MEAN CELL VOLUME 90.5 FL (80.0-100.0); MEAN CORPUSCULAR HEMOGLOBIN 30.5 PG (27.0-34.0); MEAN CORPUSCULAR HGB CONC 33.7 % (32.0-36.0); MEAN PLATELET VOLUME 7.6 FL (7.0-11.0); MONO % 7.8 % (0.0-8.0); MONOCYTE # 0.5 TH/MM3 (0-0.9); PLATELET COUNT 256 TH/MM3 (150-450); RED BLOOD COUNT 4.49 MIL/MM3 (4.50-5.90); RED CELL DISTRIBUTION WIDTH 13.1 % (11.6-17.2); WHITE BLOOD COUNT 6.5 TH/MM3 (4.0-11.0)
[2017-10-19 06:49] LABS: BICARBONATE 21.7 MEQ/L (21.0-32.0); CALCIUM 8.9 MG/DL (8.5-10.1); CREATININE 0.82 MG/DL (0.60-1.30)
[2017-10-19] MEDS: SODIUM CHLORIDE 0.9% FLUSH 10 ML FLUSH IV FLUSH SCH ×2 (08:38→22:10)
[2017-10-19] MEDS: DOCUSATE SODIUM 50 MG/SENNA 8.6 MG TAB PO SCH ×2 (08:38→21:00)
[2017-10-19] MEDS: NICOTINE 21 MG/24 HR PATCH T-DERMAL SCH (08:39)
[2017-10-19] MEDS: REMOVE OLD PATCH T-DERMAL SCH (08:39)
--- NOTE | 2017-10-19 11:30 | HHI.PYPN ---
Subjective Remarks The patient is a 37 year-old man, domiciled alone in [place], single, unemployed, supported by [facility] with a past psychiatric history of schizoaffective disorder, polysubstance use disorder, prior psychiatric admissions, no prior suicide attempts, no prior self injurious behavior, who presented to the ED voluntarily and noted to be acting bizarre, endorsing suicidal ideation and chronic auditory hallucinations which patient was admitted to the inpatient psychiatry unit for further evaluation and management. He has planned a cyclic a week in psychiatry under the care of Dr. Summers, the recommendation was review, he was stabilized in Invega 9 mg. Transferred to the medical floor due to syncope. Today on reevaluation the patient is calm, cooperative, he is found getting his physical rehab. The patient reports feeling much better. He is oriented 3. He denies suicidal and homicidal ideation at this moment, he denies visual and auditory hallucinations. He reports good mood, he is logical, coherent and relevant. No agitation, no aggressive behavior present. He is compliant with his medications, no significant side effects. He has not been taking the Invega in the medical floor, but I will restart it. I have communicated with Dr. Summers who has informed me that at the moment of the discharge the patient was already ready to be psychiatrically clear. retail worker Jeison Harrell in psychiatry has already coordinated his discharge plan. Review of Systems Constitutional: DENIES: Diaphoretic episodes, Fatigue, Fever, Weight gain, Weight loss, Chills, Dizziness, Change in appetite, Night Sweats Endocrine: DENIES: Heat/cold intolerance, Polydipsia, Polyuria, Polyphagia Eyes: DENIES: Blurred vision, Diplopia, Eye inflammation, Eye pain, Vision loss , Photosensitivity, Double Vision Ears, nose, mouth, throat: DENIES: Tinnitus, Hearing loss, Vertigo, Nasal discharge, Oral lesions, Throat pain, Hoarseness, Ear Pain, Running Nose, Epistaxis, Sinus Pain, Toothache, Odynophagia Respiratory: DENIES: Apneas, Cough, Snoring, Wheezing, Hemoptysis, Sputum production, Shortness of breath Cardiovascular: DENIES: Chest pain, Palpitations, Syncope, Dyspnea on Exertion , PND, Lower Extremity Edema, Orthopnea, Claudication Gastrointestinal: DENIES: Abdominal pain, Black stools, Bloody stools, Constipation, Diarrhea, Nausea, Vomiting, Difficulty Swallowing, Anorexia Genitourinary: DENIES: Sexual dysfunction, Urinary frequency, Urinary incontinence, Urgency, Hematuria, Dysuria, Nocturia, Penile Discharge, Testicular Pain, Testicular Swelling Musculoskeletal: DENIES: Joint pain, Muscle aches, Stiffness, Joint Swelling, Back pain, Neck pain Integumentary: DENIES: Abnormal pigmentation, Nail changes, Pruritus, Rash Hematologic/lymphatic: DENIES: Bruising, Lymphadenopathy Immunologic/allergic: DENIES: Eczema, Urticaria Neurologic: DENIES: Abnormal gait, Headache, Localized weakness, Paresthesias, Seizures, Speech Problems, Tremor, Poor Balance Psychiatric: DENIES: Anxiety, Confusion, Mood changes, Depression, Hallucinations, Agitation, Suicidal Ideation, Homicidal Ideation, Delusions Mental Status Examination Appearance: Appropriate Consciousness: Alert Orientation: x4 Motor Activity: Normal gait Speech: Unremarkable Language: Adequate Fund of Knowledge: Adequate Attention and Concentration: Adequate Memory: Unremarkable Mood: Appropriate Affect: Appropriate Thought Process & Associations: Intact Thought Content: Appropriate Hallucination Type: None Delusion Type: None Suicidal Ideation: No Suicidal Plan: No Suicidal Intention: No Homicidal Ideation: No Homicidal Plan: No Homicidal Intention: No Insight: Adequate Judgment: Adequate Results Labs Test 10/18/17 18:41 10/18/17 23:53 10/19/17 05:07 Total Creatine Kinase 35 U/L 36 U/L Troponin I LESS THAN 0.02 NG/ML LESS THAN 0.02 NG/ML White Blood Count 6.5 TH/MM3 Red Blood Count 4.49 MIL/MM3 Hemoglobin 13.7 GM/DL Hematocrit 40.6 % Mean Corpuscular Volume 90.5 FL Mean Corpuscular Hemoglobin 30.5 PG Mean Corpuscular Hemoglobin Concent 33.7 % Red Cell Distribution Width 13.1 % Platelet Count 256 TH/MM3 Mean Platelet Volume 7.6 FL Neutrophils (%) (Auto) 51.0 % Lymphocytes (%) (Auto) 35.8 % Monocytes (%) (Auto) 7.8 % Eosinophils (%) (Auto) 4.5 % Basophils (%) (Auto) 0.9 % Neutrophils # (Auto) 3.3 TH/MM3 Lymphocytes # (Auto) 2.3 TH/MM3 Monocytes # (Auto) 0.5 TH/MM3 Eosinophils # (Auto) 0.3 TH/MM3 Basophils # (Auto) 0.1 TH/MM3 CBC Comment DIFF FINAL Differential Comment Blood Urea Nitrogen 19 MG/DL Creatinine 0.82 MG/DL Random Glucose 91 MG/DL Calcium Level 8.9 MG/DL Sodium Level 140 MEQ/L Potassium Level 3.7 MEQ/L Chloride Level 108 MEQ/L Carbon Dioxide Level 21.7 MEQ/L Anion Gap 10 MEQ/L Estimat Glomerular Filtration Rate 105 ML/MIN Vitals/IOs Vital Signs Date Time Temp Pulse Resp B/P (MAP) Pulse Ox O2 Delivery O2 Flow Rate FiO2 10/19/17 08:00 98.1 44 20 104/64 (77) 97 10/18/17 21:45 Room Air Intake and Output 10/19/17 10/19/17 10/19/17 07:59 15:59 23:59 Intake Total 240 ml Output Total 700 ml Balance -460 ml Assessment & Plan Problem List: (1) Schizoaffective disorder ICD Codes: F25.9 - Schizoaffective disorder, unspecified Assessment & Plan: Patient seems to be at baseline. No acute or new neuropsychiatric symptoms present. We will restart Invega 9 mg daily for psychosis. Trazodone 100 mg hs for mood and insomnia. Brief supportive psychotherapy provided. retail worker in the floor to communicate with group social worker in psychiatry Jeison Harrell to coordinate discharge planning. Assessment & Plan Estimated LOS: days Justification for Cont. Inpt. No psychiatric admission indicated at this moment. I will follow-up. Elijah Banda MD Oct 19, 2017 11:29
[2017-10-19] MEDS: ACETAMINOPHEN 500 MG CPLT PO PRN ×2 (12:02→22:10)
[2017-10-19] MEDS: PALIPERIDONE ER 3 MG TAB PO SCH (12:17)
--- NOTE | 2017-10-19 12:51 | PD.CARD.PN ---
Subjective Subjective Remarks Doing well No complaints of syncope/pre-syncope Telemetry with sinus rhythm/sinus kam, no high degree AV blocks Objective Medications Current Medications Medications (Trade) Dose Ordered Sig/Linda Route Start Time Stop Time Status Last Admin (NS Flush) 2 ml UNSCH PRN IV FLUSH 10/18/17 15:30 (NS Flush) 2 ml BID IV FLUSH 10/18/17 21:00 10/19/17 08:38 (Tylenol) 650 mg Q4H PRN PO 10/18/17 16:00 (Zofran Inj) 4 mg Q6H PRN IVP 10/18/17 15:30 (Narcan Inj) 0.4 mg UNSCH PRN IV PUSH 10/18/17 15:30 (Kaylen-Colace) 1 tab BID PO 10/18/17 21:00 10/19/17 08:38 (Milk Of Magnesia Liq) 30 ml Q12H PRN PO 10/18/17 15:30 (Senokot) 17.2 mg Q12H PRN PO 10/18/17 15:30 (Dulcolax Supp) 10 mg DAILY PRN RECTAL 10/18/17 15:30 (Lactulose Liq) 30 ml DAILY PRN PO 10/18/17 15:30 (Atarax) 25 mg Q6HR PRN PO 10/18/17 18:00 10/19/17 04:53 (Habitrol 21 Mg Patch.24 Hr) 1 patch DAILY T-DERMAL 10/19/17 09:00 10/19/17 08:39 Miscellaneous Information 1 DAILY T-DERMAL 10/19/17 09:00 10/19/17 08:39 (Desyrel) 100 mg HS PO 10/18/17 21:00 10/18/17 21:58 (Tylenol) 500 mg Q6H PRN PO 10/19/17 11:30 10/19/17 12:02 (Invega Er) 9 mg DAILY PO 10/19/17 11:30 10/19/17 12:17 Vital Signs / I&O Vital Signs Date Time Temp Pulse Resp B/P (MAP) Pulse Ox O2 Delivery O2 Flow Rate FiO2 10/19/17 08:00 98.1 44 20 104/64 (77) 97 10/19/17 04:12 45 10/19/17 04:00 97.7 61 18 112/56 (74) 97 10/19/17 00:00 98.1 62 17 130/58 (82) 97 10/18/17 23:54 47 10/18/17 21:45 Room Air 10/18/17 20:04 71 10/18/17 20:00 97.9 56 17 122/59 (80) 97 10/18/17 18:00 97.5 61 20 134/59 (84) 96 10/18/17 17:57 94 I/O 10/18/17 10/18/17 10/18/17 10/19/17 10/19/17 10/19/17 07:00 15:00 23:00 07:00 15:00 23:00 Intake Total 240 ml Output Total 700 ml Balance -460 ml Intake Oral 240 ml Output Urine Total 700 ml # Voids 1 # Bowel Movements 0 1 Physical Exam GENERAL: NAD, AAOx3 SKIN: Warm and dry. HEAD: Atraumatic. Normocephalic. EYES: Pupils equal and round. No scleral icterus. No injection or drainage. ENT: No nasal bleeding or discharge. Mucous membranes pink and moist. NECK: Trachea midline. No JVD. CARDIOVASCULAR: Regular rate and rhythm. RESPIRATORY: No accessory muscle use. Clear to auscultation. Breath sounds equal bilaterally. GASTROINTESTINAL: Abdomen soft, non-tender, nondistended. Hepatic and splenic margins not palpable. MUSCULOSKELETAL: Extremities without clubbing, cyanosis, or edema. No obvious deformities. NEUROLOGICAL: Awake and alert. No obvious cranial nerve deficits. Motor grossly within normal limits. Five out of 5 muscle strength in the arms and legs. Normal speech. PSYCHIATRIC: Appropriate mood and affect; insight and judgment normal. Laboratory Laboratory Tests Test 10/18/17 18:41 10/18/17 23:53 10/19/17 05:07 Total Creatine Kinase 35 U/L 36 U/L Troponin I LESS THAN 0.02 NG/ML LESS THAN 0.02 NG/ML White Blood Count 6.5 TH/MM3 Red Blood Count 4.49 MIL/MM3 Hemoglobin 13.7 GM/DL Hematocrit 40.6 % Mean Corpuscular Volume 90.5 FL Mean Corpuscular Hemoglobin 30.5 PG Mean Corpuscular Hemoglobin Concent 33.7 % Red Cell Distribution Width 13.1 % Platelet Count 256 TH/MM3 Mean Platelet Volume 7.6 FL Neutrophils (%) (Auto) 51.0 % Lymphocytes (%) (Auto) 35.8 % Monocytes (%) (Auto) 7.8 % Eosinophils (%) (Auto) 4.5 % Basophils (%) (Auto) 0.9 % Neutrophils # (Auto) 3.3 TH/MM3 Lymphocytes # (Auto) 2.3 TH/MM3 Monocytes # (Auto) 0.5 TH/MM3 Eosinophils # (Auto) 0.3 TH/MM3 Basophils # (Auto) 0.1 TH/MM3 CBC Comment DIFF FINAL Differential Comment Blood Urea Nitrogen 19 MG/DL Creatinine 0.82 MG/DL Random Glucose 91 MG/DL Calcium Level 8.9 MG/DL Sodium Level 140 MEQ/L Potassium Level 3.7 MEQ/L Chloride Level 108 MEQ/L Carbon Dioxide Level 21.7 MEQ/L Anion Gap 10 MEQ/L Estimat Glomerular Filtration Rate 105 ML/MIN Assessment and Plan Problem List: (1) Syncope ICD Codes: R55 - Syncope and collapse (2) Symptomatic bradycardia ICD Codes: R00.1 - Bradycardia, unspecified (3) Schizoaffective disorder ICD Codes: F25.9 - Schizoaffective disorder, unspecified Assessment and Plan 1) Possible syncope Found to be bradycardiac at the time, but not explanatory for possible syncopal episode 2) Bradycardia Asymptomatic Young puneet, should have a baseline low heart rate Also on Invega which may cause bradycardia and syncope Heart rates 40-70, not symptomatic when heart rates low Heart rates increase when he's up and moving Most likely not the cause of syncope 3) No arrhythmias/pauses/AV blocks noted 4) 2D echo pending Demetri Cowan DO Oct 19, 2017 12:51
--- NOTE | 2017-10-19 15:38 | HHI.PR ---
Subjective Remarks 37-year-old male who had syncopal episode. Today he has no complaints. Objective Vitals Vital Signs Date Time Temp Pulse Resp B/P (MAP) Pulse Ox O2 Delivery O2 Flow Rate FiO2 10/19/17 08:00 98.1 44 20 104/64 (77) 97 10/19/17 04:12 45 10/19/17 04:00 97.7 61 18 112/56 (74) 97 10/19/17 00:00 98.1 62 17 130/58 (82) 97 10/18/17 23:54 47 10/18/17 21:45 Room Air 10/18/17 20:04 71 10/18/17 20:00 97.9 56 17 122/59 (80) 97 10/18/17 18:00 97.5 61 20 134/59 (84) 96 10/18/17 17:57 94 I/O 10/18/17 10/18/17 10/18/17 10/19/17 10/19/17 10/19/17 07:00 15:00 23:00 07:00 15:00 23:00 Intake Total 240 ml Output Total 700 ml Balance -460 ml Intake Oral 240 ml Output Urine Total 700 ml # Voids 1 # Bowel Movements 0 1 Result Diagram: 10/19/17 0507 10/19/17 0507 Objective Remarks GENERAL: Well-nourished, well-developed patient. Thin SKIN: Warm and dry. HEAD: Normocephalic. EYES: No scleral icterus. No injection or drainage. NECK: Supple, trachea midline. No JVD or lymphadenopathy. CARDIOVASCULAR: Regular rate and rhythm without murmurs, gallops, or rubs. RESPIRATORY: Breath sounds equal bilaterally. No accessory muscle use. GASTROINTESTINAL: Abdomen soft, non-tender, nondistended. EXTREMITIES: No cyanosis, or edema. NEUROLOGICAL: Awake, alert, and oriented x 3. Non-focal. A/P Problem List: (1) Syncope ICD Code: R55 - Syncope and collapse (2) Symptomatic bradycardia ICD Code: R00.1 - Bradycardia, unspecified (3) Schizoaffective disorder ICD Code: F25.9 - Schizoaffective disorder, unspecified Assessment and Plan Syncope with bradycardia Undergoing workup for symptomatic bradycardia 2D echocardiogram is pending Serial enzymes negative Appreciate cardiology consult Schizoaffective disorder Psychiatry recommends continuation of Invega and added trazodone Patient deemed to be stable Appreciate psychiatry consult DVT prophylaxis SCDs German Christiansen MD Oct 19, 2017 15:38
--- NOTE | 2017-10-19 19:06 | EKG ---
Date Performed: 10/18/2017 Time Performed: 21:36:58 PTAGE: 37 years EKG: SINUS BRADYCARDIA EARLY REPOLARIZATION BORDERLINE ECG PREVIOUS TRACING : 10/18/2017 16.46 Since the previous tracing, no significant change noted DOCTOR: Yaw Ybrara Interpretating Date/Time 10/19/2017 19:05:35
[2017-10-19] MEDS: traZODone HCL 100 MG TAB PO SCH (22:10)
[2017-10-20] VITALS: BP 112/72; PULSE 49; PULSE 54; RESP 18; TEMP 98; O2SAT 98
[2017-10-20 04:00] VITALS: BP 115/70; PULSE 51; PULSE 52; RESP 16; TEMP 97.8; O2SAT 97
[2017-10-20 08:00] VITALS: BP 110/73; PULSE 40; PULSE 66; RESP 16; TEMP 98; O2SAT 97
[2017-10-20] MEDS: DOCUSATE SODIUM 50 MG/SENNA 8.6 MG TAB PO SCH ×2 (08:18→22:08)
[2017-10-20] MEDS: NICOTINE 21 MG/24 HR PATCH T-DERMAL SCH (08:18)
[2017-10-20] MEDS: SODIUM CHLORIDE 0.9% FLUSH 10 ML FLUSH IV FLUSH SCH ×2 (08:18→22:08)
[2017-10-20] MEDS: REMOVE OLD PATCH T-DERMAL SCH (08:19)
[2017-10-20] MEDS: PALIPERIDONE ER 3 MG TAB PO SCH (08:19)
[2017-10-20] MEDS: ACETAMINOPHEN 500 MG CPLT PO PRN (08:42)
[2017-10-20 12:00] VITALS: BP 127/67; PULSE 61; PULSE 84; RESP 16; TEMP 97.3; O2SAT 98
--- NOTE | 2017-10-20 12:06 | PD.CARD.PN ---
Subjective Subjective Remarks Doing well No complaints of syncope/pre-syncope Telemetry with sinus rhythm/sinus kam, no high degree AV blocks Up and walking the floor Objective Medications Current Medications Medications (Trade) Dose Ordered Sig/Linda Route Start Time Stop Time Status Last Admin (NS Flush) 2 ml UNSCH PRN IV FLUSH 10/18/17 15:30 (NS Flush) 2 ml BID IV FLUSH 10/18/17 21:00 10/20/17 08:18 (Tylenol) 650 mg Q4H PRN PO 10/18/17 16:00 (Zofran Inj) 4 mg Q6H PRN IVP 10/18/17 15:30 (Narcan Inj) 0.4 mg UNSCH PRN IV PUSH 10/18/17 15:30 (Kaylen-Colace) 1 tab BID PO 10/18/17 21:00 10/20/17 08:18 (Milk Of Magnesia Liq) 30 ml Q12H PRN PO 10/18/17 15:30 (Senokot) 17.2 mg Q12H PRN PO 10/18/17 15:30 (Dulcolax Supp) 10 mg DAILY PRN RECTAL 10/18/17 15:30 (Lactulose Liq) 30 ml DAILY PRN PO 10/18/17 15:30 (Atarax) 25 mg Q6HR PRN PO 10/18/17 18:00 10/19/17 04:53 (Habitrol 21 Mg Patch.24 Hr) 1 patch DAILY T-DERMAL 10/19/17 09:00 10/20/17 08:18 Miscellaneous Information 1 DAILY T-DERMAL 10/19/17 09:00 10/20/17 08:19 (Desyrel) 100 mg HS PO 10/18/17 21:00 10/19/17 22:10 (Tylenol) 500 mg Q6H PRN PO 10/19/17 11:30 10/20/17 08:42 (Invega Er) 9 mg DAILY PO 10/19/17 11:30 10/20/17 08:19 (Lotrisone Cream) 1 applic Q12HR TOPICAL 10/20/17 10:15 Vital Signs / I&O Vital Signs Date Time Temp Pulse Resp B/P (MAP) Pulse Ox O2 Delivery O2 Flow Rate FiO2 10/20/17 09:47 Room Air 10/20/17 08:00 98.0 66 16 110/73 (85) 97 10/20/17 08:00 40 10/20/17 04:00 51 10/20/17 04:00 97.8 52 16 115/70 (85) 97 10/20/17 00:00 98.0 54 18 112/72 (85) 98 10/20/17 00:00 49 10/19/17 20:00 66 10/19/17 20:00 Room Air 10/19/17 20:00 97.7 52 18 123/71 (88) 97 10/19/17 16:00 97.4 49 20 123/64 (83) 98 10/19/17 15:44 63 I/O 10/19/17 10/19/17 10/19/17 10/20/17 10/20/17 10/20/17 07:00 15:00 23:00 07:00 15:00 23:00 Intake Total 240 ml 960 ml 960 ml Output Total 700 ml Balance -460 ml 960 ml 960 ml Intake Oral 240 ml 960 ml 960 ml Output Urine Total 700 ml # Voids 2 3 # Bowel Movements 1 0 1 Physical Exam GENERAL: NAD, AAOx3 SKIN: Warm and dry. HEAD: Atraumatic. Normocephalic. EYES: Pupils equal and round. No scleral icterus. No injection or drainage. ENT: No nasal bleeding or discharge. Mucous membranes pink and moist. NECK: Trachea midline. No JVD. CARDIOVASCULAR: Regular rate and rhythm. RESPIRATORY: No accessory muscle use. Clear to auscultation. Breath sounds equal bilaterally. GASTROINTESTINAL: Abdomen soft, non-tender, nondistended. Hepatic and splenic margins not palpable. MUSCULOSKELETAL: Extremities without clubbing, cyanosis, or edema. No obvious deformities. NEUROLOGICAL: Awake and alert. No obvious cranial nerve deficits. Motor grossly within normal limits. Five out of 5 muscle strength in the arms and legs. Normal speech. PSYCHIATRIC: Appropriate mood and affect; insight and judgment normal. Assessment and Plan Problem List: (1) Syncope ICD Codes: R55 - Syncope and collapse (2) Symptomatic bradycardia ICD Codes: R00.1 - Bradycardia, unspecified (3) Schizoaffective disorder ICD Codes: F25.9 - Schizoaffective disorder, unspecified Assessment and Plan 1) Possible syncope Found to be bradycardiac at the time, but not explanatory for possible syncopal episode 2) Bradycardia Asymptomatic Young puneet, should have a baseline low heart rate Also on Invega which may cause bradycardia and syncope Heart rates 40-70, not symptomatic when heart rates low Heart rates increase when he's up and moving Most likely not the cause of syncope 3) No arrhythmias/pauses/AV blocks noted 4) 2D echo pending Attempt to get today, if no concerns then no further work up from a cardiovascular standpoint Demetri Cowan DO Oct 20, 2017 12:06
[2017-10-20] MEDS: hydrOXYzine HCL 25 MG TAB PO PRN ×2 (12:53→22:08)
[2017-10-20] MEDS: BETAMETHASONE/CLOTRIMAZOLE CREAM 15 GM TOPICAL SCH ×2 (15:00→22:09)
[2017-10-20 16:00] VITALS: BP 130/66; PULSE 52; PULSE 56; RESP 16; TEMP 97.5; O2SAT 98
--- NOTE | 2017-10-20 16:04 | HHI.PR ---
Subjective Remarks Patient is ambulating hallways, spending time on the computer at the end of the lynn. He complains of a rash on the posterior aspect of his left upper leg. Objective Vitals Vital Signs Date Time Temp Pulse Resp B/P (MAP) Pulse Ox O2 Delivery O2 Flow Rate FiO2 10/20/17 12:00 84 10/20/17 09:47 Room Air 10/20/17 08:00 98.0 66 16 110/73 (85) 97 10/20/17 08:00 40 10/20/17 04:00 51 10/20/17 04:00 97.8 52 16 115/70 (85) 97 10/20/17 00:00 98.0 54 18 112/72 (85) 98 10/20/17 00:00 49 10/19/17 20:00 66 10/19/17 20:00 Room Air 10/19/17 20:00 97.7 52 18 123/71 (88) 97 I/O 10/19/17 10/19/17 10/19/17 10/20/17 10/20/17 10/20/17 07:00 15:00 23:00 07:00 15:00 23:00 Intake Total 240 ml 960 ml 960 ml Output Total 700 ml Balance -460 ml 960 ml 960 ml Intake Oral 240 ml 960 ml 960 ml Output Urine Total 700 ml # Voids 2 3 # Bowel Movements 1 0 1 Result Diagram: 10/19/17 0507 10/19/17 0507 Objective Remarks GENERAL: Well-nourished, well-developed patient. Thin SKIN: Warm and dry. 3 x 4 cm ring lesion consistent with tinea skin infection HEAD: Normocephalic. EYES: No scleral icterus. No injection or drainage. NECK: Supple, trachea midline. No JVD or lymphadenopathy. CARDIOVASCULAR: Regular rate and rhythm without murmurs, gallops, or rubs. RESPIRATORY: Breath sounds equal bilaterally. No accessory muscle use. GASTROINTESTINAL: Abdomen soft, non-tender, nondistended. EXTREMITIES: No cyanosis, or edema. NEUROLOGICAL: Awake, alert, and oriented x 3. Non-focal. A/P Problem List: (1) Syncope ICD Code: R55 - Syncope and collapse (2) Symptomatic bradycardia ICD Code: R00.1 - Bradycardia, unspecified (3) Schizoaffective disorder ICD Code: F25.9 - Schizoaffective disorder, unspecified Assessment and Plan Syncope with bradycardia Undergoing workup for symptomatic bradycardia 2D echocardiogram is still pending after 2-1/2 days of hospitalization, ordered on admission Patient can be discharged home if echocardiogram shows normal results Appreciate cardiology consult Schizoaffective disorder Psychiatry recommends continuation of Invega and added trazodone Patient deemed to be stable Appreciate psychiatry consult Dermatophytosis Ringworm infection of left posterior thigh Lotrisone twice daily DVT prophylaxis SCDs Discharge planning Awaiting 2D echo, if results are normal patient can go home German Christiansen MD Oct 20, 2017 16:04
--- NOTE | 2017-10-20 16:26 | ECHRPT ---
Indication: syncope CONCLUSIONS Normal left ventricular size. Wall thickness is normal. The left ventricular systolic function is normal with an estimated ejection fraction in the range of 55-60%. Trace mitral valve regurgitation. Trace aortic valve regurgitation. A small left sided pleural effusion is noted. BP: / HR: Rhythm: MEASUREMENTS (Male / Female) Normal Values Technical Quality: 2D ECHO LV Diastolic Diameter PLAX 4.6 cm 4.2 - 5.9 / 3.9 - 5.3 cm LV Systolic Diameter PLAX 3.6 cm IVS Diastolic Thickness 1.1 cm 0.6 - 1.0 / 0.6 - 0.9 cm LVPW Diastolic Thickness 0.8 cm 0.6 - 1.0 / 0.6 - 0.9 cm LV Relative Wall Thickness 0.4 DOPPLER Mitral E Point Velocity 68.1 cm/s Mitral A Point Velocity 48.9 cm/s Mitral E to A Ratio 1.4 TR Peak Velocity 126.0 cm/s TR Peak Gradient 6.4 mmHg Right Atrial Pressure 5.0 mmHg Pulmonary Artery Systolic Pressu 11.4 mmHg Right Ventricular Systolic Press 11.4 mmHg FINDINGS LEFT VENTRICLE Normal left ventricular size. Wall thickness is normal. The left ventricular systolic function is normal with an estimated ejection fraction in the range of 55-60%. RIGHT VENTRICLE Normal right ventricular size and systolic function. LEFT ATRIUM The left atrial size is normal. RIGHT ATRIUM The right atrial size is normal. ATRIAL SEPTUM Normal atrial septal thickness without atrial level shunting by limited color doppler interrogation. AORTA The aortic root and proximal ascending aorta are normal in size on limited imaging. MITRAL VALVE Trace mitral valve regurgitation. AORTIC VALVE Trace aortic valve regurgitation. TRICUSPID VALVE Structurally normal tricuspid valve. No tricuspid valve stenosis or regurgitation. PULMONARY VALVE No pulmonary valve regurgitation or stenosis. VESSELS The inferior vena cava is normal in size. PERICARDIUM A small left sided pleural effusion is noted. Raymundo Hall MD, FACC (Electronically Signed) Final Date:20 October 2017 16:25
[2017-10-20 20:00] VITALS: BP 125/70; PULSE 60; PULSE 61; RESP 16; TEMP 97.8; O2SAT 96
--- NOTE | 2017-10-20 20:28 | EKG ---
Date Performed: 10/20/2017 Time Performed: 01:32:26 PTAGE: 37 years EKG: Sinus bradycardia Non-specific septal anteroseptal T-wave changes Diffuse ST elevation most consistent with reploarization change, but pericarditis and possibly myocardial injury should be ex cluded clinically. Since PREVIOUS TRACING ,Patient no longer shows the early R-wave transition, but electrocardiog nicole is otherwise without significant serial change PREVIOUS TRACIN10/18/2017 21.36 DOCTOR: Angela Devi Interpretating Date/Time 10/20/2017 20:26:07
[2017-10-20] MEDS: traZODone HCL 100 MG TAB PO SCH (22:08)
[2017-10-21] VITALS: BP 119/60; PULSE 55; PULSE 78; RESP 18; TEMP 97.8; O2SAT 96
[2017-10-21 04:00] VITALS: BP 120/67; PULSE 45; PULSE 47; RESP 18; TEMP 97.7; O2SAT 97
[2017-10-21 08:00] VITALS: BP 115/56; PULSE 49; PULSE 50; RESP 16; TEMP 97.4; O2SAT 96
[2017-10-21] MEDS: REMOVE OLD PATCH T-DERMAL SCH (08:16)
[2017-10-21] MEDS: NICOTINE 21 MG/24 HR PATCH T-DERMAL SCH (08:16)
[2017-10-21] MEDS: DOCUSATE SODIUM 50 MG/SENNA 8.6 MG TAB PO SCH (08:16)
[2017-10-21] MEDS: PALIPERIDONE ER 3 MG TAB PO SCH (08:17)
[2017-10-21] MEDS: SODIUM CHLORIDE 0.9% FLUSH 10 ML FLUSH IV FLUSH SCH (08:17)
[2017-10-21] MEDS: BETAMETHASONE/CLOTRIMAZOLE CREAM 15 GM TOPICAL SCH (08:18)
[2017-10-21] MEDS: hydrOXYzine HCL 25 MG TAB PO PRN (08:24)
[2017-10-21] MEDS: ACETAMINOPHEN 500 MG CPLT PO PRN (08:24)
[2017-10-21] MEDS ORDERED: TRAZ50TA12 PO (11:55)
[2017-10-21] MEDS ORDERED: INVE3TAB2 PO (11:55)
[2017-10-21] MEDS ORDERED: HYDR-3133 PO (11:55)
[2017-10-21] MEDS ORDERED: LOTR15T TOPICAL (11:55)
[2017-10-21 12:00] VITALS: BP 111/53; PULSE 50; PULSE 56; RESP 18; TEMP 97.6; O2SAT 98
--- NOTE | 2017-10-21 13:12 | PD.CARD.PN ---
Subjective Subjective Remarks Doing well No complaints of syncope/pre-syncope Telemetry with sinus rhythm/sinus kam, no high degree AV blocks Up and walking the floor Objective Medications Current Medications Medications (Trade) Dose Ordered Sig/Linda Route Start Time Stop Time Status Last Admin (NS Flush) 2 ml UNSCH PRN IV FLUSH 10/18/17 15:30 (NS Flush) 2 ml BID IV FLUSH 10/18/17 21:00 10/21/17 08:17 (Tylenol) 650 mg Q4H PRN PO 10/18/17 16:00 (Zofran Inj) 4 mg Q6H PRN IVP 10/18/17 15:30 (Narcan Inj) 0.4 mg UNSCH PRN IV PUSH 10/18/17 15:30 (Kaylen-Colace) 1 tab BID PO 10/18/17 21:00 10/21/17 08:16 (Milk Of Magnesia Liq) 30 ml Q12H PRN PO 10/18/17 15:30 (Senokot) 17.2 mg Q12H PRN PO 10/18/17 15:30 (Dulcolax Supp) 10 mg DAILY PRN RECTAL 10/18/17 15:30 (Lactulose Liq) 30 ml DAILY PRN PO 10/18/17 15:30 (Atarax) 25 mg Q6HR PRN PO 10/18/17 18:00 10/21/17 08:24 (Habitrol 21 Mg Patch.24 Hr) 1 patch DAILY T-DERMAL 10/19/17 09:00 10/21/17 08:16 Miscellaneous Information 1 DAILY T-DERMAL 10/19/17 09:00 10/21/17 08:16 (Desyrel) 100 mg HS PO 10/18/17 21:00 10/20/17 22:08 (Tylenol) 500 mg Q6H PRN PO 10/19/17 11:30 10/21/17 08:24 (Invega Er) 9 mg DAILY PO 10/19/17 11:30 10/21/17 08:17 (Lotrisone Cream) 1 applic Q12HR TOPICAL 10/20/17 10:15 10/21/17 08:18 Vital Signs / I&O Vital Signs Date Time Temp Pulse Resp B/P (MAP) Pulse Ox O2 Delivery O2 Flow Rate FiO2 10/21/17 08:00 97.4 50 16 115/56 (75) 96 10/21/17 08:00 49 10/21/17 07:18 Room Air 10/21/17 04:00 97.7 47 18 120/67 (84) 97 10/21/17 04:00 45 10/21/17 00:00 78 10/21/17 00:00 97.8 55 18 119/60 (79) 96 10/20/17 20:30 Room Air 10/20/17 20:00 97.8 60 16 125/70 (88) 96 10/20/17 20:00 61 10/20/17 16:00 97.5 52 16 130/66 (87) 98 10/20/17 16:00 56 I/O 10/20/17 10/20/17 10/20/17 10/21/17 10/21/17 10/21/17 07:00 15:00 23:00 07:00 15:00 23:00 Intake Total 960 ml 1096 ml 960 ml Output Total 1300 ml Balance 960 ml -204 ml 960 ml Intake Oral 960 ml 1096 ml 960 ml Output Urine Total 1300 ml # Voids 3 4 # Bowel Movements 1 2 1 Physical Exam GENERAL: NAD, AAOx3 SKIN: Warm and dry. HEAD: Atraumatic. Normocephalic. EYES: Pupils equal and round. No scleral icterus. No injection or drainage. ENT: No nasal bleeding or discharge. Mucous membranes pink and moist. NECK: Trachea midline. No JVD. CARDIOVASCULAR: Regular rate and rhythm. RESPIRATORY: No accessory muscle use. Clear to auscultation. Breath sounds equal bilaterally. GASTROINTESTINAL: Abdomen soft, non-tender, nondistended. Hepatic and splenic margins not palpable. MUSCULOSKELETAL: Extremities without clubbing, cyanosis, or edema. No obvious deformities. NEUROLOGICAL: Awake and alert. No obvious cranial nerve deficits. Motor grossly within normal limits. Five out of 5 muscle strength in the arms and legs. Normal speech. PSYCHIATRIC: Appropriate mood and affect; insight and judgment normal. Assessment and Plan Problem List: (1) Syncope ICD Codes: R55 - Syncope and collapse (2) Symptomatic bradycardia ICD Codes: R00.1 - Bradycardia, unspecified (3) Schizoaffective disorder ICD Codes: F25.9 - Schizoaffective disorder, unspecified Assessment and Plan 1) Possible syncope Found to be bradycardiac at the time, but not explanatory for possible syncopal episode 2) Bradycardia Asymptomatic Young puneet, should have a baseline low heart rate Also on Invega which may cause bradycardia and syncope Heart rates 40-70, not symptomatic when heart rates low Heart rates increase when he's up and moving Most likely not the cause of syncope 3) No arrhythmias/pauses/AV blocks noted 4) EF 55-60% 5) No further cardiovascular work up Cardiovascularly stable for discharge Demetri Cowan DO Oct 21, 2017 13:12
--- NOTE | 2017-10-21 13:43 | HHI.DS ---
Discharge Summary Admission Date Oct 18, 2017 at 13:45 Discharge Date: Oct 21, 2017 Admitting Diagnosis Syncope (1) Syncope ICD Code: R55 - Syncope and collapse (2) Symptomatic bradycardia ICD Code: R00.1 - Bradycardia, unspecified (3) Schizoaffective disorder ICD Code: F25.9 - Schizoaffective disorder, unspecified Procedures none Brief History - From Admission Late entry. Patient was seen at 0800 this morning. The patient is a 37-year-old male who was admitted to inpatient psychiatry for schizoaffective disorder. This morning he apparently felt lightheaded and had a syncopal episode. When nursing staff found him on the floor, he had a heart rate of 37. He denies any chest pain or dyspnea. Denies headache or vision changes. States that he did not hit his head or injure anything else when he fell. He still has pain in his legs related to walking from [place] to [facility]. He also reports pain in the bottom of his feet, also from wounds that developed due to walking very long distance. He does not feel lightheaded at the time of my examination. CBC/BMP: 10/19/17 0507 10/19/17 0507 Significant Findings Laboratory Tests Test 10/18/17 18:41 10/18/17 23:53 10/19/17 05:07 Total Creatine Kinase 35 U/L (39-308) 36 U/L (39-308) Troponin I LESS THAN 0.02 NG/ML LESS THAN 0.02 NG/ML Red Blood Count 4.49 MIL/MM3 (4.50-5.90) Eosinophils (%) (Auto) 4.5 % (0.0-4.0) Blood Urea Nitrogen 19 MG/DL (7-18) Chloride Level 108 MEQ/L (98-107) PE at Discharge GENERAL: Well-nourished, well-developed patient. Thin SKIN: Warm and dry. 3 x 4 cm ring lesion consistent with tinea skin infection HEAD: Normocephalic. EYES: No scleral icterus. No injection or drainage. NECK: Supple, trachea midline. No JVD or lymphadenopathy. CARDIOVASCULAR: Regular rate and rhythm without murmurs, gallops, or rubs. RESPIRATORY: Breath sounds equal bilaterally. No accessory muscle use. GASTROINTESTINAL: Abdomen soft, non-tender, nondistended. EXTREMITIES: No cyanosis, or edema. NEUROLOGICAL: Awake, alert, and oriented x 3. Non-focal. Hospital Course 37-year-old male who presented to the ER on October 18 for psychiatric evaluation after being found walking long distances. During his stay in psychiatry he passed out. Cardiac workup has revealed asymptomatic bradycardia, echocardiogram was within normal limits, psychiatric medication may be a contributory factor. Most likely cause was exhaustion. He allegedly walked from [place] up to [place] and has sore legs and slight dehydration. After a few days of rest he feels ready to go home. He has been cleared by cardiology following a normal echocardiogram. Case management has arranged for a ride to [place]. Pt Condition on Discharge: Good Discharge Disposition: Discharge Home Discharge Time: <= 30 minutes Discharge Instructions DIET: Follow Instructions for: As Tolerated, No Restrictions Activities you can perform: Regular-No Restrictions German Christiansen MD Oct 21, 2017 13:43
== END 2017-10-21 14:45 | disposition home or self-care (01) | DRG 310 ==
LOC: N04A 13:45
PROVIDERS: ADMIT Family Medicine; ATTEND Family Medicine
DX: R00.1 Bradycardia, unspecified (principal); F25.9 Schizoaffective disorder, unspecified; R55 Syncope and collapse; B35.8 Other dermatophytoses; R21 Rash and other nonspecific skin eruption; S90.822A Blister (nonthermal), left foot, initial encounter; S90.821A Blister (nonthermal), right foot, initial encounter; R53.83 Other fatigue; F12.90 Cannabis use, unspecified, uncomplicated; F17.210 Nicotine dependence, cigarettes, uncomplicated; Z85.820 Personal history of malignant melanoma of skin
CPT/HCPCS: 80048; 82550; 84484; 85025; 93005; 93306